=== PATIENT | male | born 1980 | race Caucasian/White ===

== ENCOUNTER 2019-02-02 19:12 | Emergency (ER) | payer BC, OTHER ==
[2019-02-02 19:38] VITALS: TEMP 97.9
[2019-02-02] MEDS ORDERED: ONDANSETRON HCL 4 MG/2 ML SOL IV ONE (19:41)
[2019-02-02] MEDS ORDERED: HYDROMORPHONE 1 MG/ML SYRINGE IV ONE ×2 (19:41→20:39)
[2019-02-02] MEDS ORDERED: SODIUM CHLORIDE 0.9% 1000ML 1,000 ML IV SCH (19:45)
[2019-02-02] MEDS ORDERED: ONDANSETRON HCL 4 MG/2 ML SOL ONE (19:47)
[2019-02-02] MEDS ORDERED: HYDROMORPHONE 1 MG/ML SYRINGE ONE ×2 (19:47→20:39)
[2019-02-02 19:53] LABS: BASOPHILS % (AUTO) 0 % (0-3); EOSINOPHILS % (AUTO) 0 % (0-9); HEMATOCRIT 49 % (39-53); HEMOGLOBIN 16.6 gm/dl (13.5-17.7); LYMPHOCYTES % (AUTO) 9.9 % (10-50); MEAN CORPUSCULAR HEMOGLOBIN 28.7 pg (27.0-32.0); MEAN CORPUSCULAR HGB CONC 33.7 gm/dl (32.0-36.0); MEAN CORPUSCULAR VOLUME 85 fL (80-100); MONOCYTES % (AUTO) 5.8 % (0-12); NEUTROPHILS % (AUTO) 83.8 % (37-80)
[2019-02-02 20:05] LABS: ALBUMIN 4.2 gm/dl (3.4-5.0); BILIRUBIN,TOTAL 1.8 mg/dl (0.2-1.0); CALCIUM 9.9 mg/dl (8.5-10.1); CARBON DIOXIDE 20.9 mEq/L (21-32); CREATININE 0.91 mg/dl (0.80-1.30); LACTIC ACID 1.3 mMol/L (0.0-2.0); POTASSIUM 3.6 mMol/L (3.5-5.1); TOTAL PROTEIN 7.6 gm/dl (6.4-8.2)
[2019-02-02] MEDS ORDERED: SODIUM CHLORIDE 0.9% FLUSH 10 ML SOL IV PRN (20:06)
[2019-02-02 20:27] VITALS: PULSE 64
[2019-02-02 21:22] VITALS: BP 128/84; RESP 16; O2SAT 97
== END 2019-02-02 21:19 | disposition home or self-care (01) ==
LOC: ED 19:12
DX: K85.90 Acute pancreatitis without necrosis or infection, unspecified (principal)
CPT/HCPCS: 80053; 85025; 96365; 96374; 96375; 99283; 99285; J2405; J1170